=== PATIENT | female | born 1935 | race Caucasian/White ===

== ENCOUNTER 2018-09-16 14:37 | Emergency (ER) | payer OTHER, MEDICARE ==
--- NOTE | 2018-09-16 15:14 | PDOC ---
Rapid Medical Evaluation Time Seen by Provider: 09/16/18 15:09 Medical Evaluation: 09/16/18 15:09 I have performed a brief in-person evaluation of this patient. The patient presents with a chief complaint of: Abd pain x several weeks. Had US today revealing possible mass in pancreatic tail w/ mid to mod L renal hydro (daughter has report on her person). H/o borderline DM, HLD, HTN per daughter Pertinent physical exam findings:in NAD and stable I have ordered the following:labs The patient will proceed to the ED for further evaluation. Discharge Disposition - Diagnosis Abdominal pain Qualifiers: Abdominal location: unspecified location Qualified Code(s): R10.9 - Unspecified abdominal pain - Referrals - Patient Instructions - Post Discharge Activity
[2018-09-16 15:24] VITALS: TEMP 97.9; BMI 24.4
[2018-09-16 15:36] LABS: BASO % 1.3 % (0-2.0); HEMATOCRIT 31.8 % (32.4-45.2); HEMOGLOBIN 11.3 GM/dL (10.7-15.3); LYMPH % 28.9 % (8-40); MCH 30.9 pg (25.7-33.7); MCHC 35.4 g/dl (32.0-36.0); MEAN CELL VOLUME 87.2 fl (80-96); MEAN PLT VOLUME 7.6 fl (7.5-11.1); MONO % 7.8 % (3.8-10.2); PLATELET COUNT 307 K/MM3 (134-434); RBC 3.65 M/mm3 (3.60-5.2); RDW 13.4 % (11.6-15.6); WHITE BLOOD COUNT 6.1 K/mm3 (4.0-10.0)
[2018-09-16 16:02] LABS: ALBUMIN 3.6 g/dl (3.4-5.0); ALK PHOS 60 U/L (45-117); ANION GAP 7 MMOL/L (8-16); BILIRUBIN,TOTAL 0.3 mg/dL (0.2-1); BLOOD UREA NITROGEN 23 mg/dL (7-18); CHLORIDE 99 mmol/L (98-107); CO2 28 mmol/L (21-32); CREATININE 1.1 mg/dL (0.55-1.3); GLUCOSE,RANDOM 125 mg/dL (74-106); LIPASE 124 U/L (73-393); POTASSIUM 4.3 mmol/L (3.5-5.1); SGOT/AST 12 U/L (15-37); SGPT/ALT 16 U/L (13-61); SODIUM 134 mmol/L (136-145); TOT PROT 7.2 g/dl (6.4-8.2)
--- NOTE | 2018-09-16 17:22 | PDOC ---
History of Present Illness - General Chief Complaint: Pain Stated Complaint: ABD PAIN Time Seen by Provider: 09/16/18 15:09 History Source: Patient, Family (daughter) Exam Limitations: Language Barrier - History of Present Illness Initial Comments: 09/16/18 17:18 Pt is an 83yo F with PMH of borderline DM, HLD, HTN (per daughter) presenting to ED for follow up on ultrasound results. Per daughter, pt got a call from step father who was told to send pt to ED for evaluation after results of ultrasound came back. Pt had ultrasound of abdomen done earlier today because pt had been having 3 weeks of abdominal pain which is mainly left sided. She endorses weight loss, around 7-8lbs these past 3 weeks. Denies fevers, chills, nightsweats, nausea, vomiting, diarrhea, blood in stool, tarry stools, chest pain, sob, distension, abdominal surgeries, sick contacts. She thinks the pain started around the time she was placed on medications for "kidney problem". The medication course ended about 6 days ago. Ultrasound report states mild to moderate left renal hyronephrosis with suggestion of perinephric free fluid extending into left flank and heterogeneious ill-defined masslike density that appears hypechoic in pancreatic tail measuring 2.5 cm and appears to be involving pancreatic body. PMD: Rosalie PMH: see hpi PSH: none Meds: ? Social: denies Allergies: ndka Past History - Past Medical History Allergies/Adverse Reactions: Allergies Allergy/AdvReac Type Severity Reaction Status Date / Time No Known Allergies Allergy Verified 09/16/18 15:24 COPD: No HTN: Yes Hypercholesterolemia: Yes - Suicide/Smoking/Psychosocial Hx Smoking History: Never smoked Have you smoked in the past 12 months: No Information on smoking cessation initiated: No Hx Alcohol Use: No Drug/Substance Use Hx: No *Physical Exam - Vital Signs Last Vital Signs Temp Pulse Resp BP Pulse Ox 97.9 F 95 H 17 99/66 99 09/16/18 15:09 09/16/18 15:09 09/16/18 15:09 09/16/18 15:09 09/16/18 15:09 Moderate Sedation - Procedure Monitoring Vital Signs: Procedure Monitoring Vital Signs Temperature 97.9 F 09/16/18 15:09 Pulse Rate 95 H 09/16/18 15:09 Respiratory Rate 17 09/16/18 15:09 Blood Pressure 99/66 09/16/18 15:09 O2 Sat by Pulse Oximetry (%) 99 09/16/18 15:09 ED Treatment Course - LABORATORY CBC & Chemistry Diagram: 09/16/18 15:25 09/16/18 15:25 - ADDITIONAL ORDERS Additional order review: Laboratory Results 09/16/18 15:25 Sodium 134 L Potassium 4.3 Chloride 99 Carbon Dioxide 28 Anion Gap 7 L BUN 23 H Creatinine 1.1 Creat Clearance w eGFR 47.21 Random Glucose 125 H Calcium 10.0 Total Bilirubin 0.3 AST 12 L ALT 16 Alkaline Phosphatase 60 Total Protein 7.2 Albumin 3.6 Lipase 124 09/16/18 15:25 RBC 3.65 MCV 87.2 MCHC 35.4 RDW 13.4 MPV 7.6 Neutrophils % 58.0 Lymphocytes % 28.9 Monocytes % 7.8 Eosinophils % 4.0 Basophils % 1.3 Medical Decision Making - Medical Decision Making 09/16/18 18:50 Pt is an 83yo F with PMH of borderline DM, HLD, HTN (per daughter) presenting to ED for follow up on ultrasound results. Per daughter, pt got a call from step father who was told to send pt to ED for evaluation after results of ultrasound came back. Pt had ultrasound of abdomen done earlier today because pt had been having 3 weeks of abdominal pain which is mainly left sided. She endorses weight loss, around 7-8lbs these past 3 weeks. Denies fevers, chills, nightsweats, nausea, vomiting, diarrhea, blood in stool, tarry stools, chest pain, sob, distension, abdominal surgeries, sick contacts. She thinks the pain started around the time she was placed on medications for "kidney problem". The medication course ended about 6 days ago. Ultrasound report states mild to moderate left renal hyronephrosis with suggestion of perinephric free fluid extending into left flank and heterogeneious ill-defined masslike density that appears hypechoic in pancreatic tail measuring 2.5 cm and appears to be involving pancreatic body. Vitals; wnl PE: benign Pt coming from home for ultrasound findings suggestive of pancreatic mass, L hydronephrosis with Flank free fluid. Per CT scan done in 2012, L hydronephrosis was present. Pancreatic mass and free fluid is new. -CTAP (with and without contrast as suggested by CT scan, pt getting hydration due to borderline Cr and slightly decreased GFR) Lab wnl 09/16/18 18:[address] Pending results Signed out to night team *DC/Admit/Observation/Transfer Diagnosis at time of Disposition: Pancreatic mass Abdominal pain Qualifiers: Abdominal location: unspecified location Qualified Code(s): R10.9 - Unspecified abdominal pain Hydronephrosis Qualifiers: Hydronephrosis type: unspecified Qualified Code(s): N13.30 - Unspecified hydronephrosis - Discharge Dispostion Disposition: HOME Condition at time of disposition: Good Decision to Admit order: No - Referrals Referrals: Va Wiggins MD [Primary Care Provider] - - Patient Instructions Printed Discharge Instructions: DI for Abdominal Pain-Adult - Post Discharge Activity
[2018-09-16] MEDS ORDERED: SODIUM CHLORIDE 500 ML IV STA ×2 (17:43→18:53)
--- NOTE | 2018-09-16 19:30 | PDOC ---
*Physical Exam - Vital Signs Last Vital Signs Temp Pulse Resp BP Pulse Ox 97.9 F 95 H 17 99/66 99 09/16/18 15:09 09/16/18 15:09 09/16/18 15:09 09/16/18 15:09 09/16/18 15:09 ED Treatment Course - LABORATORY CBC & Chemistry Diagram: 09/16/18 15:25 09/16/18 15:25 - ADDITIONAL ORDERS Additional order review: Laboratory Results 09/16/18 15:25 Sodium 134 L Potassium 4.3 Chloride 99 Carbon Dioxide 28 Anion Gap 7 L BUN 23 H Creatinine 1.1 Creat Clearance w eGFR 47.21 Random Glucose 125 H Calcium 10.0 Total Bilirubin 0.3 AST 12 L ALT 16 Alkaline Phosphatase 60 Total Protein 7.2 Albumin 3.6 Lipase 124 09/16/18 15:25 RBC 3.65 MCV 87.2 MCHC 35.4 RDW 13.4 MPV 7.6 Neutrophils % 58.0 Lymphocytes % 28.9 Monocytes % 7.8 Eosinophils % 4.0 Basophils % 1.3 - Medications Given in the ED: ED Medications Discontinued Medications Generic Name Dose Route Start Last Admin Trade Name Freq PRN Reason Stop Dose Admin Sodium Chloride 500 mls @ 1,000 mls/hr 09/16/18 17:43 09/16/18 17:48 Normal Saline - IV 09/16/18 18:12 1,000 mls/hr ASDIR STA Administration Medical Decision Making - Medical Decision Making 09/16/18 19:29 The patient was signed out to me by Dr. Flowers. The patient is an 83F with a PMH of borderline HTN, HLD, who presents to the ER with a note concerning for pancreatic CA on U/S. Pending CTAP. 09/16/18 21:15 Dr. Hendricks, vascular, paged for recs on CT. 09/16/18 21:19 CT Impression: 1. Mass proximal body the pancreas measuring 5.9 x 4.5 x 4.8 cm. Difficult to single she mass in the posterior wall of the distal stomach. Omental caking noted. 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 2. Abdominal and pelvic ascites. 3. Bilateral hydronephrosis and hydroureter. No obvious ureteral obstruction identified. Bladder is small and contracted although bladder wall thickening suggested diffusely. Paging vascular surgery for recommendations. 09/16/18 21:50 Dr. Hendricks paged x 2. 09/16/18 22:15 Rebecca Hendricks paged x 3. 09/16/18 22:30 [facility] vascular surgery paged. 09/16/18 22:40 Vascular surgery recs: Start anticoagulation. Usually get admitted to hospitalist. If pt is not in acute extremis, admitted and anticoagulation. Heparin usually first. Observed. Send to [facility] or [facility] [place] ER. Likely admission. Dr. Lyles accepts the patient and will see the patient in the ER. I have endorsed the patient to Dr. Hdz at [facility] ED. 09/16/18 23:35 Transfer team has taken pt to [facility]. 09/16/18 23:55 Dr. Hendricks has called back. I have informed him that the patient is already transferred. *DC/Admit/Observation/Transfer Diagnosis at time of Disposition: Pancreatic mass Abdominal pain Qualifiers: Abdominal location: unspecified location Qualified Code(s): R10.9 - Unspecified abdominal pain Hydronephrosis Qualifiers: Hydronephrosis type: unspecified Qualified Code(s): N13.30 - Unspecified hydronephrosis - Discharge Dispostion Disposition: TRANSFER ACUTE CARE/OTHER HOSP Condition at time of disposition: Guarded Decision to Admit order: No - Referrals Referrals: Va Wiggins MD [Primary Care Provider] - - Patient Instructions Printed Discharge Instructions: DI for Abdominal Pain-Adult - Post Discharge Activity - Transfer to Acute Care Facility Receiving Facility: [facility] Accepting Physician:: Dr. Hdz
--- NOTE | 2018-09-16 23:12 | PDOC ---
Attending Attestation - Resident Resident Name: KristieSaTania - ED Attending Attestation I have performed the following: I have examined & evaluated the patient, The case was reviewed & discussed with the resident, I agree w/resident's findings & plan, Exceptions are as noted - HPI HPI: 09/17/18 18:10 The patient is an 83-year-old female, with a past medical history of HTN, HLD, DM, who presents to the ED for follow up on US results. The patient has been experiencing left-sided abdominal pain for the past 3 weeks and had an abdomen US done earlier today. Pt reports she received a call from her PMD to come to the ED for further evaluation due to the US results. She reports 7-8 lbs weight loss in the past 3 weeks. She denies any fevers, chills, nausea, vomiting, diarrhea, or hematochezia. Denies any chest pain or shortness of breath. Denies any urinary symptoms. Per US study report: Mild to moderate left renal hydronephrosis with suggestion of perinephric free fluid that appears to be extending to the to the left flank and a heterogeneous ill-defined masslike density that appears hypoechoic in the pancreatic tail measuring 2.5 cm and appears to be involving the pancreatic body. - Physicial Exam PE: 09/17/18 18:13 agree with resident exam - Medical Decision Making 09/17/18 18:13 83yo F presents to the ED with 3 weeks of L sided abd pain, weight loss, and abnormal US c/f perinephric free fluids and possible pancreatic mass. Labs wnl thus far. In light of possible free fluid, L side abd pain (although non tender on exam), and possible mass, will further investigate with CTAP. Pt and daughter aware of possible mass, agree to CTAP for further evaluation. 09/17/18 19:16 Pt currently at CTAP. UA pending. Case signed out to overnight attending for f/u on pending diagnostics, dispo.
[2018-09-16] MEDS ORDERED: HEPARIN NA (PORCINE) 5,000 UNITS/ML 1ML VIAL IVPUSH PRN ×2 (23:29)
[2018-09-16] MEDS ORDERED: HEPARIN - 25,000 UNIT in SODIUM CHLORIDE 495 ML IV SCH (23:30)
[2018-09-16 23:35] VITALS: BP 110/65; PULSE 83
--- NOTE | 2018-09-17 16:46 | EKG ---
Test Reason : Blood Pressure : / mmHG Vent. Rate : 099 BPM Atrial Rate : 099 BPM P-R Int : 178 ms QRS Dur : 088 ms QT Int : 360 ms P-R-T Axes : 038 -12 008 degrees QTc Int : 462 ms NORMAL SINUS RHYTHM NORMAL ECG NO PREVIOUS ECGS AVAILABLE Confirmed by RUPESH WU MD ([id number]) on 09/17/2018 4:45:45 PM Referred By: Confirmed By:RUPESH WU MD
== END 2018-09-17 00:04 | disposition short-term general hospital (02) ==
LOC: JER 14:37
PROC: 3E0337Z Introduction of Electrolytic and Water Balance Substance into Peripheral Vein, Percutaneous Approach (ICD-10-PCS; principal; 2018-09-16)
DX: K86.89 Other specified diseases of pancreas (principal); N13.30 Unspecified hydronephrosis; I10 Essential (primary) hypertension; E78.5 Hyperlipidemia, unspecified; E78.00 Pure hypercholesterolemia, unspecified; E11.9 Type 2 diabetes mellitus without complications
CPT/HCPCS: 36415; 74178-TC; 80053; 83690; 85025; 93005; 93010; 99284-25; J7030

== ENCOUNTER 2018-11-06 21:06 | Emergency (ER) | payer OTHER, MEDICARE ==
[2018-11-06 21:15] VITALS: BP 124/59; PULSE 109; TEMP 98.5
--- NOTE | 2018-11-06 21:15 | PDOC ---
Rapid Medical Evaluation Chief Complaint: Nasal Bleeding Medical Evaluation: Allergies Allergy/AdvReac Type Severity Reaction Status Date / Time No Known Allergies Allergy Verified 09/16/18 15:24 11/06/18 21:14 I have performed a brief in-person evaluation of this patient. The patient presents with a chief complaint of: Epistaxis. H/o stage 3 pancreatitic cancer Pertinent physical exam findings:stable I have ordered the following:labs The patient will proceed to the ED for further evaluation. Discharge Disposition - Diagnosis Epistaxis - Referrals - Patient Instructions - Post Discharge Activity
--- NOTE | 2018-11-06 21:38 | PDOC ---
History of Present Illness <RaquelAusten - Last Filed: 11/07/18 00:43> - General History Source: Patient, Family ( and Daughter at bedside.), Old Records Exam Limitations: No Limitations - History of Present Illness Initial Comments: HPI: 83 y/o female presenting to [facility] ER complaining of 2x nose bleeds and diffuse abdominal pain. Pts daughter reports observing two brief periods of epistaxis over the course of the day. Last episode was at approx. 5pm. Small amount of bleeding and some clotted material was passed into the tissue. Bleeding stopped prior to arrival. Abdominal pain is a chronic complaint secondary to stage 3 pancreatic cancer. On palliative care only. Pt is prescribed a 72hr Fentanyl patch and Oxycodone BID. Was not able to tolerate evening Oxycodone dose secondary to nausea. Pt endorses decreased PO intake for past several days with feelings of weakness. Is not prescribed any antiemetic. 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 Is scheduled to be evaluated by marijuana pain specialist on Friday. Oncologist: Dr. Hagan Medical Hx: - Stage 3 Pancreatic Cancer - Borderline DM - HLD - HTN <William Valenzuela - Last Filed: 11/07/18 00:51> - General Chief Complaint: Nasal Bleeding Stated Complaint: NOSE BLEEDS/ ABD PAIN Time Seen by Provider: 11/06/18 21:25 Past History <RaquelAusten - Last Filed: 11/07/18 00:43> - Past Medical History Cancer: Yes (Stage 3 PancreaticCA) COPD: No HTN: Yes Hypercholesterolemia: Yes - Suicide/Smoking/Psychosocial Hx Smoking History: Never smoked Have you smoked in the past 12 months: No Information on smoking cessation initiated: No Hx Alcohol Use: No Drug/Substance Use Hx: No <William Valenzuela - Last Filed: 11/07/18 00:51> - Past Medical History Allergies/Adverse Reactions: Allergies Allergy/AdvReac Type Severity Reaction Status Date / Time No Known Allergies Allergy Verified 09/16/18 15:24 Home Medications: Ambulatory Orders Ondansetron [Zofran Odt -] 4 mg SL TID #21 od.tablet 11/07/18 Review of Systems - Review of Systems Able to Perform ROS?: Yes Comments:: In addition to that documented in the HPI above, the additional ROS was obtained : Constitutional: Denies fevers or chills Head: Denies vision changes ENMT: Denies sore throat CV: Denies chest pain Resp: Denies SOB GI: Endorses nausea and small amount of emesis. Denies diarrhea : Denies painful urination, increased urinary frequency, or hematuria MSK: Denies recent trauma Skin: Denies new rashes Neuro: Denies new numbness or tingling or weakness Endocrine: Denies polyuria Heme: Denies bleeding or bruising <William Valenzuela - Last Filed: 11/07/18 00:51> *Physical Exam - Vital Signs Last Vital Signs Temp Pulse Resp BP Pulse Ox 98.5 F 109 H 20 124/59 L 98 11/06/18 21:11 11/06/18 21:11 11/06/18 21:11 11/06/18 21:11 11/06/18 21:11 <Austen García - Last Filed: 11/07/18 00:43> - Vital Signs Last Vital Signs Temp Pulse Resp BP Pulse Ox 98.5 F 109 H 20 124/59 L 98 11/06/18 21:11 11/06/18 21:11 11/06/18 21:11 11/06/18 21:11 11/06/18 21:11 - Physical Exam Comments: Constitutional: Non-toxic elderly adult female in no acute distress but obvious discomfort. Found in left lateral recumbent position on hospital bed. Alert and oriented x4. Speech was non-labored, non-pressured. Head: Normocephalic. No obvious external signs of trauma. Eyes: Sclerae white. Conjunctiva moist and not injected. Ears: Hearing grossly intact. Nose: Small amount of blood to anterolateral aspect of left nare and small amount of blood to anteromedial aspect of right nare. No active bleeding. Throat: Trace amount of dry appearing blood in posterior oropharynx but otherwise normal appearing. No inflammation, swelling, exudate, or lesions. Neck: Supple, trachea is midline. Cardiovascular / Chest: Regular rate and regular rhythm. No murmur, rubs, clicks, or gallops. Peripheral pulses: radial pulses full. Respiratory: Breathing unlabored. Equal chest rise and fall. Clear to auscultation bilaterally. No stridor, no wheezing, no rhonchi. Gastrointestinal: abdomen is diffusely tender with obvious mass in RUQ. Neuro: Alert and oriented. Moving all four extremities spontaneously. Skin: Warm, dry, and intact. Psych: Affect: appropriate. Mood: normal. <William Valenzuela - Last Filed: 11/07/18 00:51> ED Treatment Course - LABORATORY CBC & Chemistry Diagram: 11/06/18 22:50 11/06/18 22:50 - ADDITIONAL ORDERS Additional order review: Laboratory Results 11/06/18 11/06/18 11/06/18 22:50 22:50 22:50 PT with INR INR PTT (Actin FS) Cancelled Sodium Cancelled Potassium Cancelled Chloride Cancelled Carbon Dioxide Cancelled Anion Gap Cancelled BUN Cancelled Creatinine Cancelled Creat Clearance w eGFR Cancelled Random Glucose Cancelled Calcium Cancelled Total Bilirubin Cancelled AST Cancelled ALT Cancelled Alkaline Phosphatase Cancelled Total Protein Cancelled Albumin Cancelled Blood Type Cancelled Antibody Screen Cancelled 11/06/18 22:50 PT with INR 17.90 H INR 1.51 H PTT (Actin FS) 30.1 Sodium Potassium Chloride Carbon Dioxide Anion Gap BUN Creatinine Creat Clearance w eGFR Random Glucose Calcium Total Bilirubin AST ALT Alkaline Phosphatase Total Protein Albumin Blood Type Antibody Screen 11/06/18 22:50 RBC 3.47 L MCV 86.7 MCHC 33.6 RDW 14.2 MPV 7.2 L Neutrophils % 74.8 Lymphocytes % 13.5 D Monocytes % 10.4 H Eosinophils % 0.5 D Basophils % 0.8 - Medications Given in the ED: ED Medications Discontinued Medications Generic Name Dose Route Start Last Admin Trade Name Faith PRN Reason Stop Dose Admin Acetaminophen 1,000 mg 11/06/18 22:21 11/06/18 23:19 Ofirmev Injection - IVPB 11/06/18 22:22 1,000 mg ONCE ONE Administration Lactated Ringer's 1,000 ml 11/06/18 22:07 11/06/18 23:18 Lactated Ringers Solution IV 11/06/18 22:08 1,000 ml ONCE ONE Administration Morphine Sulfate 4 mg 11/06/18 22:18 11/06/18 23:18 Morphine Injection - IVPUSH 11/06/18 22:19 4 mg ONCE ONE Administration Ondansetron HCl 4 mg 11/06/18 22:06 11/06/18 23:18 Zofran Odt - SL 11/06/18 22:07 4 mg ONCE ONE Administration Ondansetron HCl 4 mg 11/06/18 22:12 11/06/18 23:18 Zofran Injection IVPUSH 11/06/18 22:13 4 mg ONCE ONE Administration <Austen García - Last Filed: 11/07/18 00:43> - LABORATORY CBC & Chemistry Diagram: 11/06/18 22:50 11/06/18 22:50 <BishopWilliam - Last Filed: 11/07/18 00:51> Medical Decision Making - Medical Decision Making *Reviewed vital signs, nursing notes, and prior visit documentation (if available). 83 y/o female presenting with resolved epistaxis x2 on Eliquis and abdominal pain in setting of pancreatic cancer. Has not been tolerating normally scheduled pain regimen secondary to nausea. Suspect pain is secondary to CA given lack of persistent vomiting or diarrhea. Afebrile. Vitals remarkable for borderline tachycardia without hypotension. Will trend vitals. EKG ordered by RME. Will obtain CBC, CMP, Coags, and T/S. Ordered LR IVFB, Zofran IV and OTD ( for pt education), Acetaminophen, and Morphine for symptom management. 23:38 Lab called to report T/S and chemistry hemolyzed. Will not reorder s pt is not anemic and low suspicion for acute electrolyte derangement. Pt assessed and discharged by ED attending. <William Valenzuela - Last Filed: 11/07/18 00:51> *DC/Admit/Observation/Transfer - Discharge Dispostion Decision to Admit order: No <Austen García - Last Filed: 11/07/18 00:43> <BishopWilliam - Last Filed: 11/07/18 00:51> Diagnosis at time of Disposition: Epistaxis - Prescriptions Prescriptions: Ondansetron [Zofran Odt -] 4 mg SL TID #21 od.tablet - Referrals Referrals: Va Wiggins MD [Primary Care Provider] - Romario Tejeda MD [Staff Physician] - - Patient Instructions Printed Discharge Instructions: Nosebleed Additional Instructions: Take [id number] Colace as directed on package. Take Zofran as prescribed. Okay to take pain medication as prescribed. Follow-up with a pain management doctor next week. If nose bleeding recurs apply pressure for 30 minutes as instructed in the ED return to ED for any severe worsening symptoms uncontrollable bleeding or for any concerns. Try not to blow nose or cough forcefully. If re-bleeding occurs more frequently please follow up with Dr. Tejeda next week
[2018-11-06] MEDS ORDERED: ONDANSETRON *ODT* 4 MG TABLET SL ONE (22:06)
[2018-11-06] MEDS ORDERED: LACTATED RINGERS SOLUTION 1000 ML INFUS.BAG IV ONE (22:07)
[2018-11-06] MEDS ORDERED: ONDANSETRON 4 MG/2 ML VIAL IVPUSH ONE (22:12)
[2018-11-06] MEDS ORDERED: morphine CARPU-JECT 4 MG/1 ML DISP.SYRIN IVPUSH ONE (22:18)
[2018-11-06] MEDS ORDERED: ACETAMINOPHEN 1000 MG/100 ML VIAL (NON FORMULARY) IVPB ONE (22:21)
[2018-11-06] MEDS ORDERED: morphine SULFATE 4 MG/ML VIAL ONE (22:27)
[2018-11-06] MEDS ORDERED: ACETAMINOPHEN INJECTION 100 ML IVPB ONE (22:27)
[2018-11-06] MEDS ORDERED: ONDANSETRON *ODT* 4 MG TABLET ONE (22:27)
[2018-11-06] MEDS ORDERED: ONDANSETRON 4 MG/2 ML VIAL ONE (22:28)
[2018-11-06 23:00] LABS: BASO % 0.8 % (0-2.0); EOS % 0.5 % (0-4.5); HEMATOCRIT 30.1 % (32.4-45.2); HEMOGLOBIN 10.1 GM/dL (10.7-15.3); LYMPH % 13.5 % (8-40); MCH 29.1 pg (25.7-33.7); MCHC 33.6 g/dl (32.0-36.0); MEAN CELL VOLUME 86.7 fl (80-96); MEAN PLT VOLUME 7.2 fl (7.5-11.1); MONO % 10.4 % (3.8-10.2); NEUT % 74.8 % (42.8-82.8); PLATELET COUNT 455 K/MM3 (134-434); RBC 3.47 M/mm3 (3.60-5.2); RDW 14.2 % (11.6-15.6); WHITE BLOOD COUNT 5.2 K/mm3 (4.0-10.0)
[2018-11-06 23:23] LABS: INR 1.51 (0.83-1.09); PROTHROMBIN TIME (PATIENT) 17.9 SEC (9.7-13.0)
[2018-11-06 23:26] LABS: ACTIVATED PTT 30.1 SECONDS (25.2-36.5)
--- NOTE | 2018-11-07 00:09 | PDOC ---
Attending Attestation - HPI HPI: 11/07/18 00:13 The patient is a 83 year old female, with a significant past medical history of taking Eliquis for venous thrombus around pancreas (as per daughter), DM, HLD , HTN, who is presenting to the ED with complaint of nosebleed x2 and chronic diffuse abdominal pain today. The patient reports some clotted material was passed into the tissue from her nose and stopped just prior to ED arrival. Bleeding stopped prior to arrival. The patient also reports associated nausea and decreased PO intake. The patient denies chest pain, shortness of breath, headache and dizziness. The patient denies fever, chills, vomit, diarrhea and constipation. The patient denies dysuria, frequency, urgency and hematuria. Oncologist: Dr. Hagan PMD: Rosalie - Physicial Exam PE: 11/07/18 00:13 ROS: A complete review of 10 out of 10 review of systems is taken and is negative apart from what is previously mentioned below and in the HPI. Physical Exam Vitals: Triage vital signs reviewed General Appearance: No acute distress, well nourished, well developed Head: Atraumatic Eyes: Pupils equal reactive round, extraocular movement intact Neck: Supple; No nuchal rigidity Chest Wall: Nontender Cardiac: Regular rate and rhythm, no murmurs, no rubs, no gallops Lungs: Clear to auscultation bilateral, good air movement bilaterally Abdomen: (+) diffuse mild tenderness. Soft, nondistended, normal bowel sounds, Extremities: Full range of motion to all extremities, no cyanosis, clubbing, or edema Skin: Warm and dry, no rashes or lesions, no rash, no petechiae Neuro: AOX3; Cranial Nerves 2-12 grossly intact, Strength intact to all extremities, Sensation intact to all extremities, Psych: Normal mood, normal affect <Hollie Mansfield - Last Filed: 11/07/18 00:13> - Resident Resident Name: William Valenzuela - ED Attending Attestation I have performed the following: I have examined & evaluated the patient, The case was reviewed & discussed with the resident, I agree w/resident's findings & plan, Exceptions are as noted - Medical Decision Making 11/07/18 01:37 83 years old with advanced pancreatic cancer in home hospice presents with epistaxis which has since resolved Patient also with chronic abdominal discomfort being treated with fentanyl and oxycodone at home Family states decreased by mouth intake at home requesting IV fluids Status post IV fluids and Zofran patient feels much better now tolerating fluids by mouth discussed with family admission for additional fluids the patient would like to return home we'll discharge home with prescription for Zofran, Colace. Family where they can return to the ED at any time Otherwise they will follow-up this week with her primary care doctor and pain management doctor Findings, need for follow-up and strict return instructions discussed with family patient. <Austen García - Last Filed: 11/07/18 01:37> Attestations - Attestations 11/07/18 00:14 Documentation prepared by Hollie Mansfield, acting as medical technologist prn for Austen García MD <Hollie Mansfield - Last Filed: 11/07/18 00:13>
--- NOTE | 2018-11-09 10:27 | EKG ---
Test Reason : Blood Pressure : / mmHG Vent. Rate : 102 BPM Atrial Rate : 102 BPM P-R Int : 142 ms QRS Dur : 082 ms QT Int : 348 ms P-R-T Axes : 016 003 013 degrees QTc Int : 453 ms SINUS TACHYCARDIA INCOMPLETE RIGHT BUNDLE BRANCH BLOCK ABNORMAL ECG WHEN COMPARED WITH ECG OF 16-SEP-2018 23:36, NO SIGNIFICANT CHANGE WAS FOUND Confirmed by VENUS PACHECO MD ([id number]) on 11/09/2018 10:27:00 AM Referred By: Confirmed By:VENUS PACHECO MD
== END 2018-11-07 01:10 | disposition home or self-care (01) ==
LOC: JER 21:06
PROC: 3E033NZ Introduction of Analgesics, Hypnotics, Sedatives into Peripheral Vein, Percutaneous Approach (ICD-10-PCS; principal; 2018-11-06)
PROC: 3E033NZ Introduction of Analgesics, Hypnotics, Sedatives into Peripheral Vein, Percutaneous Approach (ICD-10-PCS; 2018-11-06)
PROC: 3E033GC Introduction of Other Therapeutic Substance into Peripheral Vein, Percutaneous Approach (ICD-10-PCS; 2018-11-06)
DX: R10.84 Generalized abdominal pain (principal); R04.0 Epistaxis; C25.7 Malignant neoplasm of other parts of pancreas; I10 Essential (primary) hypertension; E11.9 Type 2 diabetes mellitus without complications; E78.00 Pure hypercholesterolemia, unspecified; Z86.718 Personal history of other venous thrombosis and embolism; Z79.01 Long term (current) use of anticoagulants; R00.0 Tachycardia, unspecified
CPT/HCPCS: 36415; 85025; 85610; 85730; 93005; 93010; 96374; 96375; 99282-25; J0131; Q0162

== ENCOUNTER 2018-11-14 17:17 | Inpatient (IN) | payer OTHER, MEDICARE ==
--- NOTE | 2018-11-14 18:36 | PDOC ---
History of Present Illness - General Chief Complaint: Pain Stated Complaint: WEAKNESS, ABDOMINAL PAIN Time Seen by Provider: 11/14/18 17:43 History Source: Patient, Family (Adult Daughter at bedside.), Spouse ( at bedside.), Old Records Exam Limitations: No Limitations - History of Present Illness Initial Comments: HPI: 83 y/o female BIBEMS to [facility] ER complaining of diffuse abdominal pain, persistent nausea/vomiting, and general malaise. The abdominal pain is chronic secondary to stage 3 pancreatic cancer. On palliative care only. Pt is prescribed a 72hr Fentanyl patch and Oxycodone BID. Current Fentanyl patch is scheduled to be changed tomorrow. Was not able to tolerate evening Oxycodone dose secondary to nausea. Pt endorses decreased PO intake for past several days with feelings of weakness. Pt further endorses decreased bowel movements with poor PO intake for the past several days. Pt was scheduled to establish care with a [facility] doctor last week but cancelled the appointment because of weakness. Pt was evaluated in this department on 07 November 2018 for similar complaints. Oncologist: Dr. Hagan Medical Hx: - Stage 3 Pancreatic Cancer - Borderline DM - HLD - HTN Past History - Past Medical History Allergies/Adverse Reactions: Allergies Allergy/AdvReac Type Severity Reaction Status Date / Time No Known Allergies Allergy Verified 11/14/18 17:27 Home Medications: Ambulatory Orders FENTANYL 12mcg PATCH [DURAGESIC 12mcg PATCH -] 1 each TD Q72H 11/14/18 Ondansetron HCl [Zofran] 4 mg PO Q6H PRN 11/14/18 Oxycodone HCl [Oxaydo] 7.5 mg PO Q6H PRN 11/14/18 Rivaroxaban [Xarelto -] 10 mg PO DAILY 11/14/18 Sennosides/Docusate Sodium [Stool Softener-Laxative Tablet] 1 each PO DAILY PRN 11/14/18 Cancer: Yes (Stage 3 PancreaticCA) COPD: No HTN: Yes Hypercholesterolemia: Yes - Immunization History Immunization Up to Date: (Unknown) - Suicide/Smoking/Psychosocial Hx Smoking History: Never smoked Have you smoked in the past 12 months: No Information on smoking cessation initiated: No Hx Alcohol Use: No Drug/Substance Use Hx: No Review of Systems - Review of Systems Able to Perform ROS?: Yes Comments:: In addition to that documented in the HPI above, the additional ROS was obtained : Constitutional: Denies fevers or chills Head: Denies vision changes ENMT: Denies sore throat CV: Denies chest pain Resp: Denies SOB GI: Per HPI : Denies painful urination MSK: Denies recent trauma Skin: Denies new rashes Neuro: Denies new numbness or tingling or weakness Endocrine: Denies polyuria Heme: Denies bleeding or bruising *Physical Exam - Vital Signs Last Vital Signs Temp Pulse Resp BP Pulse Ox 98.2 F 103 H 20 123/61 97 11/14/18 17:27 11/14/18 17:27 11/14/18 17:27 11/14/18 17:27 11/14/18 17:27 - Physical Exam Comments: Constitutional: Nontoxic elderly female in no acute distress but obvious discomfort. Found semi-fowlers on hospital bed. Alert and oriented x4. Answered all questions appropriately and completely. Speech was non-labored, non- pressured. Head: Normocephalic. No obvious external signs of trauma. Eyes: Sclerae white. Cardiovascular / Chest: Regular rate and regular rhythm. No murmur, rubs, clicks, or gallops. Peripheral pulses: radial pulses full. Respiratory: Breathing unlabored. Equal chest rise and fall. Clear to auscultation bilaterally. No stridor, no wheezing, no rhonchi. Gastrointestinal: abdomen is diffusely tender and distended but not taught. Palpable mass in RUQ. Neuro: Alert and oriented. Moving all four extremities spontaneously. Skin: Warm, dry, and intact. Psych: Affect: appropriate. Mood: normal. ED Treatment Course - LABORATORY CBC & Chemistry Diagram: 11/14/18 19:42 11/14/18 19:42 - RADIOLOGY Radiograph Interpretation: Abdominal Flat and Upright Plain Film: Melinda Savage MD wrote on Nov 14, 2018 at 07:47 PM: Referring Physician: BISHOP FELIX Patient Name: ALIDA CEE THIS IS A PRELIMINARY REPORT FROM [facility] DATE OF SERVICE: 2018-11-14 19:11:55 IMAGES: 4 EXAM: ABDOMEN FLAT \T\ UPRIGHT HISTORY: Abdominal distention pancreatic cancer COMPARISON: None. FINDINGS: Increased soft tissue density overlying the abdomen likely imply the presence of abdominal ascites. There is minimal bowel gas and moderate stool present. There are no dilated loops of bowel or air-fluid levels. There is no apparent pneumoperitoneum. Degenerative lumbar spine changes are seen. The visualized lower lung diane are clear. IMPRESSION: Minimal bowel gas present. No dilated loops of bowel or evidence of obstruction. No apparent pneumoperitoneum. Suspect ascites THIS DOCUMENT HAS BEEN ELECTRONICALLY SIGNED Melinda Savage D.O. 11/14/2018 19:47 EST Medical Decision Making - Medical Decision Making *Reviewed vital signs, nursing notes, and prior visit documentation (if available). 83 y/o female with pancreatic cancer on comfort care presenting with chronic abdominal pain and chronic nausea/vomiting. Has not adhered to pain regimen. Afebrile. Vitals unremarkable for hypotension or tachycardia. Physical exam as described above. Suspect pain secondary to CA. Suspect abdominal distention secondary to nonadherence to bowel regimen. Ordered IVFB, pain medication, and abdominal plain film to evaluate for obstruction. Labs revealed mild hyperkalemia and hyponatremia with elevated BUN. Suspect dehydration. Already receiving IVFB. No obstructive pattern on plain film. Discussed goals of care with pt and family. All parties requested admission to hospital for further pain management and likely palliative placement. Further discussed desire for resuscitative efforts and pt requested to be made a full DNR. DNR paperwork was subsequently signed and witnessed by the pts daughter. was also present for the discussion. Telephone consultation with resident Dr. Fu. Verbally appraised of the pts HPI, ED course, and current plan of management. Will admit the pt to med/surg on observational status for Dr. Wilcox. *DC/Admit/Observation/Transfer Diagnosis at time of Disposition: Weakness Abdominal pain Qualifiers: Abdominal location: generalized Qualified Code(s): R10.84 - Generalized abdominal pain Constipation Qualifiers: Constipation type: unspecified constipation type Qualified Code(s): K59.00 - Constipation, unspecified Pancreatic cancer Qualifiers: Pancreatic malignancy location: unspecified Qualified Code(s): C25.9 - Malignant neoplasm of pancreas, unspecified Nausea & vomiting Qualifiers: Vomiting type: unspecified Vomiting Intractability: non-intractable Qualified Code(s): R11.2 - Nausea with vomiting, unspecified - Discharge Dispostion Decision to Admit order: Yes - Referrals Referrals: Va Wiggins MD [Primary Care Provider] - - Patient Instructions - Post Discharge Activity
[2018-11-14] MEDS ORDERED: morphine CARPU-JECT 4 MG/1 ML DISP.SYRIN IVPUSH ONE (18:37)
[2018-11-14] MEDS ORDERED: ONDANSETRON *ODT* 4 MG TABLET SL ONE (18:38)
[2018-11-14] MEDS ORDERED: ACETAMINOPHEN 1000 MG/100 ML VIAL (NON FORMULARY) IVPB ONE (18:38)
[2018-11-14] MEDS ORDERED: ONDANSETRON 4 MG/2 ML VIAL IVPUSH ONE (18:38)
[2018-11-14] MEDS ORDERED: LACTATED RINGERS SOLUTION 1000 ML INFUS.BAG IV ONE (18:38)
--- NOTE | 2018-11-14 18:43 | PDOC ---
Attending Attestation - HPI HPI: The patient is an 83 year old female, with a significant PMH of stage 3 pancreatic cancer, borderline DM, HLD, and HTN, who presents to the emergency department today complaining of abdominal pain, nausea, and vomit. As per patients daughter, she is noncompliant with the pain medications administered for her pancreatic cancer. Patient complains of severe abdominal pain secondary to stage 3 pancreatic CA (on palliative care only), and is currently wearing her Fentanyl patch but is non-compliant with oxycodone (secondary to nausea). Patients daughter also notes her abdomen is significantly more bloated than normal. She endorses associated diffuse weakness, decreased PO intake, and decreased bowel movements. The patient denies chest pain, shortness of breath, headache and dizziness. Denies fever, chills, and diarrhea. Denies dysuria, frequency, urgency and hematuria. Allergies: NKA Past surgical history: None reported Social history: None reported PCP: Dr. Va Wiggins Oncologist: Dr. Lyn Hagan 11/14/18 20:48 - Physicial Exam PE: GENERAL: +Chichetic. The patient is in no acute distress. HEAD: Normal with no signs of trauma. EYES: PERRLA, EOMI, sclera anicteric, conjunctiva clear. ENT: Ears normal, nares patent, oropharynx clear without exudates. Moist mucous membranes. NECK: Normal range of motion, supple without lymphadenopathy, JVD, or masses. LUNGS: Breath sounds equal, clear to auscultation bilaterally. No wheezes, and no crackles. HEART:Regular rate and rhythm, normal S1 and S2 without murmur, rub or gallop. ABDOMEN: +Severe abdominal tenderness to palpation. +Significant abdominal distention. +Guarding. Soft, normoactive bowel sounds. No rebound. No masses palpable. EXTREMITIES: Normal range of motion, no edema. No clubbing or cyanosis. No erythema, or tenderness. NEUROLOGICAL: Cranial nerves II through XII grossly intact. Normal speech. No focal neurological deficits. MUSCULOSKELETAL: Back non-tender to palpation, no CVA tenderness SKIN: Warm, Dry, normal turgor, no rashes or lesions noted. 11/14/18 19:48 - Medical Decision Making EXAM: ABdomen Flat/T/Upright X-Ray Impression: Minimal bowel gas present. No dilated loops of bowel or evidence of obstruction. No apparent pneumoperitoneum. Suspect ascites. Reported by: Melinda Cobian MD. 11/14/2018 19:47 Documentation prepared by KARMEN Strauss, acting as medical/surgery registered nurse for Tania Herrera MD. 11/14/18 20:24 <Liss Ross - Last Filed: 11/14/18 20:48> - Resident Resident Name: William Valenzuela - ED Attending Attestation I have performed the following: I have examined & evaluated the patient, The case was reviewed & discussed with the resident, I agree w/resident's findings & plan, Exceptions are as noted - Medical Decision Making 11/18/18 17:55 83 yo F recent diagnosis of pancreatic cancer presenting with abdominal pain No fevers or chills Pending labs Pending CT Will admit Will IV hydrate Signed out to Dr Herrera <Lashon Carver - Last Filed: 11/18/18 18:01>
[2018-11-14] MEDS ORDERED: morphine SULFATE 4 MG/ML VIAL ONE (18:55)
[2018-11-14] MEDS ORDERED: ONDANSETRON *ODT* 4 MG TABLET ONE (18:56)
[2018-11-14] MEDS ORDERED: ACETAMINOPHEN INJECTION 100 ML IVPB ONE (18:56)
[2018-11-14] MEDS ORDERED: ONDANSETRON 4 MG/2 ML VIAL ONE (18:56)
[2018-11-14] MEDS ORDERED: SODIUM CHLORIDE 1,000 ML IV STA (19:16)
--- NOTE | 2018-11-14 19:36 | PDOC ---
*Physical Exam - Vital Signs Last Vital Signs Temp Pulse Resp BP Pulse Ox 98.2 F 103 H 20 123/61 97 11/14/18 17:27 11/14/18 17:27 11/14/18 17:27 11/14/18 17:27 11/14/18 17:27 Heart Score/ECG Review - ECG Intrepretation Rhythm: Regular Rhythm - Elbing Elbing: Normal - P and RI Prominent R with upright T in V1 (true posterior LA): No Delta Wave(s) Present: No WPW: No - ST and T Non Specific ST-T Wave changes: No - ECG Impressions Normal ECG: No Non-specific ST Elevation: No Ischemic Changes: No Tachycardia: Sinus ED Treatment Course - LABORATORY CBC & Chemistry Diagram: 11/14/18 19:42 11/14/18 19:42 - Medications Given in the ED: ED Medications Discontinued Medications Generic Name Dose Route Start Last Admin Trade Name Freq PRN Reason Stop Dose Admin Acetaminophen 1,000 mg 11/14/18 18:38 11/14/18 19:10 Ofirmev Injection - IVPB 11/14/18 18:39 1,000 mg ONCE ONE Administration Lactated Ringer's 1,000 ml 11/14/18 18:38 11/14/18 19:09 Lactated Ringers Solution IV 11/14/18 18:39 1,000 ml ONCE ONE Administration Morphine Sulfate 4 mg 11/14/18 18:37 11/14/18 19:09 Morphine Injection - IVPUSH 11/14/18 18:38 4 mg ONCE ONE Administration Ondansetron HCl 4 mg 11/14/18 18:38 11/14/18 19:10 Zofran Odt - SL 11/14/18 18:39 4 mg ONCE ONE Administration Ondansetron HCl 4 mg 11/14/18 18:38 11/14/18 19:10 Zofran Injection IVPUSH 11/14/18 18:39 4 mg ONCE ONE Administration Medical Decision Making - Medical Decision Making 11/14/18 19:34 Pt was on home hospice and she was brought by family for worsening abdominal pain. Labs will be obtained. CBC returned. She will be admitted to the hospitalists. 11/14/18 19:56 Patient Name: ALIDA CEE THIS IS A PRELIMINARY REPORT FROM [facility] DATE OF SERVICE: 2018-11-14 19:11:55 IMAGES: 4 EXAM: ABDOMEN FLAT \T\ UPRIGHT HISTORY: Abdominal distention pancreatic cancer COMPARISON: None. FINDINGS: Increased soft tissue density overlying the abdomen likely imply the presence of abdominal ascites. There is minimal bowel gas and moderate stool present. There are no dilated loops of bowel or air-fluid levels. There is no apparent pneumoperitoneum. Degenerative lumbar spine changes are seen. The visualized lower lung diane are clear. IMPRESSION: Minimal bowel gas present. No dilated loops of bowel or evidence of obstruction. No apparent pneumoperitoneum. Suspect ascites 11/14/18 20:18 Pt has ascites and constipation and will require laxatives, hydration. 11/14/18 21:29 Pt signed a DNR with the resident and I. Family was present for the discussion and signature. *DC/Admit/Observation/Transfer Diagnosis at time of Disposition: Abdominal pain, Constipation, Pancreatic cancer, Weakness, Nausea & vomiting - Referrals - Patient Instructions - Post Discharge Activity
[2018-11-14 19:50] LABS: BASO % 0.5 % (0-2.0); EOS % 0.6 % (0-4.5); HEMATOCRIT 27.9 % (32.4-45.2); HEMOGLOBIN 9.2 GM/dL (10.7-15.3); LYMPH % 13.4 % (8-40); MCH 28.5 pg (25.7-33.7); MCHC 32.9 g/dl (32.0-36.0); MEAN CELL VOLUME 86.7 fl (80-96); MEAN PLT VOLUME 7.2 fl (7.5-11.1); MONO % 9.2 % (3.8-10.2); NEUT % 76.3 % (42.8-82.8); PLATELET COUNT 373 K/MM3 (134-434); RBC 3.21 M/mm3 (3.60-5.2); RDW 14.6 % (11.6-15.6); WHITE BLOOD COUNT 6.2 K/mm3 (4.0-10.0)
[2018-11-14] MEDS ORDERED: LACTULOSE 20 GM/30 ML UDC (FOR ORAL USE ONLY) PO ONE (19:55)
[2018-11-14] MEDS ORDERED: POLYETHYLENE GLYCOL 3350 119 GM BTL PO ONE (20:06)
[2018-11-14 20:18] LABS: ALBUMIN 2.5 g/dl (3.4-5.0); ALK PHOS 76 U/L (45-117); AMYLASE 32 U/L (25-115); ANION GAP 10 MMOL/L (8-16); BILIRUBIN,TOTAL 0.3 mg/dL (0.2-1); BLOOD UREA NITROGEN 42 mg/dL (7-18); CALCIUM 8.8 mg/dL (8.5-10.1); CHLORIDE 97 mmol/L (98-107); CO2 22 mmol/L (21-32); CREATININE 1.3 mg/dL (0.55-1.3); GLUCOSE,RANDOM 116 mg/dL (74-106); LIPASE 48 U/L (73-393); POTASSIUM 5.2 mmol/L (3.5-5.1); SGOT/AST 22 U/L (15-37); SGPT/ALT 14 U/L (13-61); SODIUM 130 mmol/L (136-145); TOT PROT 5.6 g/dl (6.4-8.2)
[2018-11-14] MEDS ORDERED: FAMOTIDINE 20 MG/50 ML IVPB 20 MG/50 ML MG IVPB ONE ×2 (20:19→22:27)
[2018-11-14] MEDS ORDERED: LACTULOSE 20 GM/30 ML UDC (FOR ORAL USE ONLY) ONE (20:25)
[2018-11-14 20:40] LABS: INR 1.7 (0.83-1.09); PROTHROMBIN TIME (PATIENT) 20.2 SEC (9.7-13.0)
[2018-11-14] MEDS ORDERED: BISACODYL 10 MG SUPP.RECT PR PRN (21:01)
[2018-11-14] MEDS ORDERED: MORPHINE SULFATE 2 MG/ML VIAL IVPUSH PRN (21:02)
--- NOTE | 2018-11-14 21:06 | HP ---
CHIEF COMPLAINT: Nausea, pain PCP: Dr. Wiggins Oncologist previous: Dr. Lyn Hagan HISTORY OF PRESENT ILLNESS: 83yo F with h/o Stage III pancreatic cancer who presents today due to uncontrolled pain and nausea 2/2 to her progressing cancer. Daughter and partner are at bedside who report since pt's incidental diagnosis was discovered after she was seen here for epistaxis, weight loss, and abdominal pain. Pt was noted to have portal vein thrombosis and was placed on ____. They were seen at [facility] who discharged her on a NOAC and they were seen once by Dr. Nicholson at our facilities, however the patient and family agreed on conservative management of her cancer. Pt was living at home, however she was incrementally decreasing her PO intake and having increased pain with associated nausea. Pt's family also reports pt has not have a bowel movement for 3 days to date. Pt at home has been using Fentanyl 12mcg patch q72h, Oxycodone BID, and only Miralax for her bowel regiment. Pt reports severe pain mostly in shoulders and epigastric region. Pt was supposed to see pain specialist this prior Friday, however pt became too weak to undergo their visit. Today,pt and family would like to discuss hospice and further help her pain/nausea control which is why they sought help in the ED tonight. PAST MEDICAL HISTORY: Stage III pancreatic cancer HLD HTN Portal vein? Thrombosis Pre-diabetes PAST SURGICAL HISTORY: Social History: Smoking: Denies Alcohol: Denies Drugs: Denies Family History: Noncontributory Allergies No Known Allergies Allergy (Verified 11/14/18 17:27) HOME MEDICATIONS: Home Medications Medication Instructions Recorded FENTANYL 12mcg PATCH [DURAGESIC 1 each TD Q72H 11/14/18 12mcg PATCH -] Ondansetron HCl [Zofran] 4 mg PO Q6H PRN 11/14/18 Oxycodone HCl [Oxaydo] 7.5 mg PO Q6H PRN 11/14/18 Rivaroxaban [Xarelto -] 10 mg PO DAILY 11/14/18 Sennosides/Docusate Sodium [Stool 1 each PO DAILY PRN 11/14/18 Softener-Laxative Tablet] REVIEW OF SYSTEMS CONSTITUTIONAL: Present: Weakness, weight change, loss of appetite Absent: fever, chills, diaphoresis, malaise HEENT: Absent: rhinorrhea, nasal congestion, throat pain, throat swelling, difficulty swallowing, mouth swelling, ear pain, eye pain, visual changes CARDIOVASCULAR: Absent: chest pain, syncope, palpitations, irregular heart rate, lightheadedness , peripheral edema RESPIRATORY: Absent: cough, shortness of breath, dyspnea with exertion, orthopnea, wheezing, GASTROINTESTINAL: Presnt: Abd pain, abd distension, nausea, constipation Absent: vomiting, diarrhea,melena MUSCULOSKELETAL: Present: Arthralgia Absent: myalgia, joint swelling, back pain, neck pain SKIN: Absent: rash, itching, pallor HEMATOLOGIC/IMMUNOLOGIC: Absent: easy bleeding, easy bruising, NEUROLOGIC: Absent: headache, focal weakness or paresthesias, dizziness, PSYCHIATRIC: Absent: anxiety, depression, suicidal or homicidal ideation, hallucinations. PHYSICAL EXAMINATION Vital Signs 11/14/18 17:27 Temperature 98.2 F Pulse Rate 103 H Respiratory 20 Rate Blood Pressure 123/61 O2 Sat by Pulse 97 Oximetry (%) GENERAL: Mild distress, Awake, alert, and fully oriented HEENT: Bitemporal wasting, dry mucosa, sclera anicteric NECK: No JVD LUNGS: Poor inspiratory effort due to pain. No wheezes, and no crackles. No accessory muscle use. HEART: Tachycardic and regular rhythm, normal S1 and S2 without murmur ABDOMEN: Soft, tensely distended, mild TTP diffusely, hypoactive BS, no guarding EXTREMITIES: 2+ pulses, warm, No peripheral edema. PSYCHIATRIC: Cooperative. Good eye contact. SKIN: Warm, dry, no rashes or lesions noted Laboratory Results - last 24 hr 11/14/18 11/14/18 11/14/18 19:42 19:42 19:42 WBC 6.2 RBC 3.21 L Hgb 9.2 L Hct 27.9 L MCV 86.7 MCH 28.5 MCHC 32.9 RDW 14.6 Plt Count 373 MPV 7.2 L Absolute Neuts (auto) 4.7 Neutrophils % 76.3 Lymphocytes % 13.4 Monocytes % 9.2 Eosinophils % 0.6 Basophils % 0.5 Nucleated RBC % 0 PT with INR 20.20 H INR 1.70 H Sodium 130 L Potassium 5.2 H Chloride 97 L Carbon Dioxide 22 Anion Gap 10 BUN 42 H Creatinine 1.3 Creat Clearance w eGFR 38.93 Random Glucose 116 H Calcium 8.8 Total Bilirubin 0.3 AST 22 ALT 14 Alkaline Phosphatase 76 Total Protein 5.6 L Albumin 2.5 L Total Amylase 32 Lipase 48 L ASSESSMENT/PLAN: Intractable pain Intractable nausea Stage III pancreatic cancer Constipation Dehydration Thrombosis HTN HLD Pre-diabetic --Place in observation for control of pain and nausea --Palliative care team consulted for discussions about hospice --Increased Fentanyl patch to 25mcg q72h (starts tomorrow) --Morphine 2mg q3h PRN pain 7-10 --Tylenol for pain 4-6 --? possible relistor for anti-mu receptor effect --NS@50cc/hr for hydration in setting of poor PO intake --Zofran 4mg q6h IVP PRN for nausea --Colace 100mg TID --Miralax ordered --Senna 2tab HS --Ducolax suppository PRN for constipation as well --Will do vitals q6h for monitoring pt's pain --will avoid labs per family's request and further imaging --Pt already signed DNR/DNI with ER physicians FEN: Fluids: NS@50cc/hr for hydration in setting of poor PO tolerance Electrolyte abnormalities: HyperK and HypoNa; will treat conservatively Nutrition: Palliative diet if pt wants PPX: DVT - Moderate-high risk 2/2 to hypercoaguable state GOC: Pt signed paperwork of DNR/DNI with family (daughter Emma; ? partner Jose) in witness. After further discussions with the patient and her family at bedside they would like conservative measures meaning they did not want invasive tests, further blood draws, further imaging. They were okay with treatment with pain management, nausea management, continued BP control as this could cause undue diress, IVF for hydration. They were going to discuss further about any antibiotic management for reversible causes. Family and patient in agreement of q6h vitals for now due to indication of adequate pain control and hydration. Dispo: Observation and to discuss inpatient vs. SNF hospice Case discussed with Dr. Jeri Fu, DO - IM PGY-2 Visit type - Emergency Visit Emergency Visit: Yes ED Registration Date: 11/14/18 Care time: The patient presented to the Emergency Department on the above date and was hospitalized for further evaluation of their emergent condition. - New Patient This patient is new to me today: Yes Date on this admission: 11/14/18 - Critical Care Critical Care patient: No
--- NOTE | 2018-11-14 21:16 | PN ---
Teaching Attending Note Name of Resident: Sunil Fu ATTENDING PHYSICIAN STATEMENT I saw and evaluated the patient. I reviewed the resident's note and discussed the case with the resident. I agree with the resident's findings and plan as documented. SUBJECTIVE: This is an 83 year old woman with a history of pancreatic cancer, HTN, hyperlipidemia, stage 3 CKD, portal vein thrombosis who comes to the ED complaining of abdominal pain, nausea, and vomiting. The patient had chosen not to treat the cancer. At home, she has been using fentanyl 12.5 mcg patch and oxycodone 5 mg twice a day. She has not been able to take the oxycodone because of nausea. She is on Miralax daily for constipation. Her oral intake has been gradually decreasing. She has not had a bowel movement in 3 days despite Miralax. OBJECTIVE: Vital Signs Period Temp Pulse Resp BP Sys/Carvajal Pulse Ox Last 24 Hr 98.2 F 103 20 123/61 97 HEART: S1S2, tachycardic LUNGS: Clear ABDOMEN: Soft, distended, firm, mild diffuse tenderness, hypoactive BS EXTREMITIES: 1+ pedal edema Laboratory Tests 11/14/18 11/14/18 11/14/18 19:42 19:42 19:42 WBC 6.2 RBC 3.21 L Hgb 9.2 L Hct 27.9 L MCV 86.7 MCH 28.5 MCHC 32.9 RDW 14.6 Plt Count 373 MPV 7.2 L Absolute Neuts (auto) 4.7 Neutrophils % 76.3 Lymphocytes % 13.4 Monocytes % 9.2 Eosinophils % 0.6 Basophils % 0.5 Nucleated RBC % 0 PT with INR 20.20 H INR 1.70 H Sodium 130 L Potassium 5.2 H Chloride 97 L Carbon Dioxide 22 Anion Gap 10 BUN 42 H Creatinine 1.3 Creat Clearance w eGFR 38.93 Random Glucose 116 H Calcium 8.8 Total Bilirubin 0.3 AST 22 ALT 14 Alkaline Phosphatase 76 Total Protein 5.6 L Albumin 2.5 L Total Amylase 32 Lipase 48 L Home Medications Medication Instructions Recorded FENTANYL 12mcg PATCH [DURAGESIC 1 each TD Q72H 11/14/18 12mcg PATCH -] Ondansetron HCl [Zofran] 4 mg PO Q6H PRN 11/14/18 Oxycodone HCl [Oxaydo] 7.5 mg PO Q6H PRN 11/14/18 Rivaroxaban [Xarelto -] 10 mg PO DAILY 11/14/18 Sennosides/Docusate Sodium [Stool 1 each PO DAILY PRN 11/14/18 Softener-Laxative Tablet] ASSESSMENT AND PLAN: This is an 83 year old woman with a history of stage 3 pancreatic cancer, HTN, hyperlipidemia, stage 3 CKD, portal vein thrombosis who presented to the ED with abdominal pain, nausea, vomiting, and constipation. 1. Stage 3 pancreatic cancer with ascites and opioid-induced constipation - Pain control - Increase fentanyl patch to 25 mcg - Morphine as needed for pain until able to take oral meds - Family does not want therapeutic paracentesis at this time - IV fluid - Lactulose, Miralax given in ED for constipation - Continue Colace, Senna, Miralax for constipation if able to tolerate - Consider Dulcolax suppository, Relistor for constipation - Palliative care consult - family wants to look into hospice care 2. Hyponatremia, hyperkalemia - IV fluid - Family does not want aggressive management and does not want blood draws 3. Anemia - Family does not want further investigation or treatment 4. Stage 3 CKD - Stable 5. HTN - On no medication 6. Hyperlipidemia - On no medication 7. Portal vein thrombosis
[2018-11-14] MEDS: SODIUM CHLORIDE 1,000 ML IV SCH (22:41)
[2018-11-14] MEDS ORDERED: Methylnaltrexone Bromide 12 MG/0.6 ML KIT SQ PRN (22:42)
[2018-11-14] MEDS: SENNOSIDES 8.6MG TABLET (FP) PO SCH (22:42)
[2018-11-14] MEDS: POLYETHYLENE GLYCOL 3350 119 GM BTL PO SCH (22:42)
[2018-11-15] MEDS ORDERED: ACETAMINOPHEN 325 MG TABLET (FP) ONE (07:38)
[2018-11-15] MEDS ORDERED: BISACODYL 10 MG SUPP.RECT RC ONE (07:38)
[2018-11-15] MEDS ORDERED: DOCUSATE SODIUM 100 MG CAPSULE (FP) PO ONE ×2 (07:39→14:05)
[2018-11-15] MEDS: DOCUSATE SODIUM 100 MG CAPSULE (FP) PO SCH ×3 (07:53→21:57)
[2018-11-15] MEDS: ACETAMINOPHEN 325 MG TABLET (FP) PO PRN (07:53)
[2018-11-15] MEDS: POLYETHYLENE GLYCOL 3350 119 GM BTL PO SCH ×2 (09:38→22:46)
[2018-11-15] MEDS ORDERED: FENTANYL PATCH WASTE TD PRN (10:41)
[2018-11-15] MEDS ORDERED: fentaNYL 25mcg/hr PATCH.TD72 TD SCH (10:45)
[2018-11-15] MEDS ORDERED: fentaNYL 25mcg/hr PATCH.TD72 ONE (11:16)
--- NOTE | 2018-11-15 15:41 | PN ---
Progress Note, Physician Chief Complaint: Ms Benedict complains of abdominal pain and constipation. No cp or sob. - Current Medication List Current Medications: Active Medications Acetaminophen (Tylenol -) 650 mg PO Q6H PRN PRN Reason: PAIN LEVEL 4 - 6 Last Admin: 11/15/18 07:53 Dose: 650 mg Bisacodyl (Dulcolax Suppository -) 10 mg [place] PRN PRN PRN Reason: CONSTIPATION Last Admin: 11/15/18 07:53 Dose: 10 mg Docusate Sodium (Colace -) 100 mg PO TID [facility] Last Admin: 11/15/18 14:11 Dose: 100 mg Fentanyl (Duragesic 25mcg Patch -) 1 patch TD Q72H [facility] Stop: 11/22/18 10:42 Last Admin: 11/15/18 11:17 Dose: 1 patch Sodium Chloride (Normal Saline -) 1,000 mls @ 50 mls/hr IV ASDIR [facility] Last Admin: 11/14/18 22:41 Dose: 50 mls/hr Methylnaltrexone [place] (Relistor -) 8 mg SQ Q2D@1000 PRN PRN Reason: CONSTIPATION Miscellaneous (Duragesic Patch Waste) 1 each TD PRN PRN PRN Reason: PAIN Morphine Sulfate (Morphine Sulfate) 2 mg IVPUSH Q3H PRN PRN Reason: PAIN LEVEL 7 - 10 Ondansetron HCl (Zofran Injection) 4 mg IVPUSH Q6H PRN PRN Reason: NAUSEA AND/OR VOMITING Polyethylene Glycol (Miralax (For Daily Use) -) 17 gm PO BID [facility] Last Admin: 11/15/18 09:38 Dose: 17 gm Senna (Senna -) 2 tab PO HS [facility] Last Admin: 11/14/18 22:42 Dose: 2 tab - Objective Vital Signs: Vital Signs Temperature 36.5 C 11/15/18 07:30 Pulse Rate 107 H 11/15/18 07:30 Respiratory Rate 17 11/15/18 10:41 Blood Pressure 133/58 L 11/15/18 07:30 O2 Sat by Pulse Oximetry (%) 97 11/15/18 10:41 Constitutional: Yes: Well Nourished, Moderate Distress Cardiovascular: Yes: Regular Rate and Rhythm. No: Gallop, Murmur, Rub Respiratory: Yes: Regular, CTA Bilaterally. No: Rales, Rhonchi, Wheezes Gastrointestinal: Yes: Distention, Hypoactive Bowel Sounds, Tenderness. No: Normal Bowel Sounds, Soft Extremities: Yes: WNL Edema: No Labs: CBC, BMP 11/14/18 19:42 11/14/18 19:42 INR, PTT INR 1.70 (0.83-1.09) H 11/14/18 19:42 Problem List - Problems (1) Abdominal pain Code(s): R10.9 - UNSPECIFIED ABDOMINAL PAIN Qualifiers: Abdominal location: generalized Qualified Code(s): R10.84 - Generalized abdominal pain (2) Constipation Code(s): K59.00 - CONSTIPATION, UNSPECIFIED Qualifiers: Constipation type: unspecified constipation type Qualified Code(s): K59.00 - Constipation, unspecified (3) Pancreatic cancer Code(s): C25.9 - MALIGNANT NEOPLASM OF PANCREAS, UNSPECIFIED Qualifiers: Pancreatic malignancy location: unspecified Qualified Code(s): C25.9 - Malignant neoplasm of pancreas, unspecified Assessment/Plan -case d/w patient and daughter -given suppository -bowel movement after suppository and feeling more comfortable -fentanyl patch increased to 25mcg -morphine prn for pain -palliative care consult
--- NOTE | 2018-11-15 18:06 | EKG ---
Test Reason : Blood Pressure : / mmHG Vent. Rate : 105 BPM Atrial Rate : 105 BPM P-R Int : 142 ms QRS Dur : 080 ms QT Int : 334 ms P-R-T Axes : 012 -01 022 degrees QTc Int : 441 ms SINUS TACHYCARDIA CANNOT RULE OUT ANTERIOR INFARCT (CITED ON OR BEFORE 14-NOV-2018) ABNORMAL ECG WHEN COMPARED WITH ECG OF 06-NOV-2018 21:33, NO SIGNIFICANT CHANGE WAS FOUND Confirmed by ALVARO VALDEZ, KIRA ([id number]) on 11/15/2018 6:05:19 PM Referred By: Confirmed By:KIRA JOHN MD
[2018-11-15 18:17] VITALS: BMI 26.4
[2018-11-15] MEDS: SODIUM CHLORIDE 1,000 ML IV SCH (20:55)
[2018-11-15] MEDS: SENNOSIDES 8.6MG TABLET (FP) PO SCH (21:56)
[2018-11-16] MEDS: ACETAMINOPHEN 325 MG TABLET (FP) PO PRN (02:14)
[2018-11-16] MEDS: DOCUSATE SODIUM 100 MG CAPSULE (FP) PO SCH ×3 (06:21→21:09)
[2018-11-16] MEDS: POLYETHYLENE GLYCOL 3350 119 GM BTL PO SCH ×2 (10:07→21:09)
[2018-11-16] MEDS: ONDANSETRON 4 MG/2 ML VIAL IVPUSH PRN (13:21)
[2018-11-16] MEDS ORDERED: PT OWN MED DRAWER 7, Y5N ONE (13:28)
[2018-11-16] MEDS: SODIUM CHLORIDE 1,000 ML IV SCH (14:00)
--- NOTE | 2018-11-16 15:56 | PN ---
Progress Note, Physician Chief Complaint: Ms Benedict says she feels better but unable to obtain further subjective, confused. - Current Medication List Current Medications: Active Medications Acetaminophen (Tylenol -) 650 mg PO Q6H PRN PRN Reason: PAIN LEVEL 4 - 6 Last Admin: 11/16/18 02:14 Dose: 650 mg Bisacodyl (Dulcolax Suppository -) 10 mg [place] PRN PRN PRN Reason: CONSTIPATION Last Admin: 11/15/18 07:53 Dose: 10 mg Docusate Sodium (Colace -) 100 mg PO TID [facility] Last Admin: 11/16/18 13:21 Dose: 100 mg Fentanyl (Duragesic 25mcg Patch -) 1 patch TD Q72H [facility] Stop: 11/22/18 10:42 Last Admin: 11/15/18 11:17 Dose: 1 patch Sodium Chloride (Normal Saline -) 1,000 mls @ 50 mls/hr IV ASDIR [facility] Last Admin: 11/15/18 20:55 Dose: 50 mls/hr Methylnaltrexone [place] (Relistor -) 8 mg SQ Q2D@1000 PRN PRN Reason: CONSTIPATION Last Admin: 11/16/18 15:16 Dose: 8 mg Miscellaneous (Duragesic Patch Waste) 1 each TD PRN PRN PRN Reason: PAIN Morphine Sulfate (Morphine Sulfate) 2 mg IVPUSH Q3H PRN PRN Reason: PAIN LEVEL 7 - 10 Ondansetron HCl (Zofran Injection) 4 mg IVPUSH Q6H PRN PRN Reason: NAUSEA AND/OR VOMITING Last Admin: 11/16/18 13:21 Dose: 4 mg Polyethylene Glycol (Miralax (For Daily Use) -) 17 gm PO BID [facility] Last Admin: 11/16/18 10:07 Dose: 17 gm Senna (Senna -) 2 tab PO HS [facility] Last Admin: 11/15/18 21:56 Dose: 2 tab - Objective Vital Signs: Vital Signs Temperature 36.4 C L 11/16/18 10:16 Pulse Rate 96 H 11/16/18 10:16 Respiratory Rate 20 11/16/18 10:16 Blood Pressure 111/53 L 11/16/18 10:16 O2 Sat by Pulse Oximetry (%) 98 11/16/18 12:00 Constitutional: Yes: Well Nourished, No Distress, Calm Cardiovascular: Yes: Regular Rate and Rhythm. No: Gallop, Murmur, Rub Respiratory: Yes: Regular, CTA Bilaterally. No: Rales, Rhonchi, Wheezes Gastrointestinal: Yes: Normal Bowel Sounds, Distention, Tenderness Extremities: Yes: WNL Edema: No Labs: CBC, BMP 11/14/18 19:42 11/14/18 19:42 INR, PTT INR 1.70 (0.83-1.09) H 11/14/18 19:42 Problem List - Problems (1) Abdominal pain Code(s): R10.9 - UNSPECIFIED ABDOMINAL PAIN Qualifiers: Abdominal location: generalized Qualified Code(s): R10.84 - Generalized abdominal pain (2) Constipation Code(s): K59.00 - CONSTIPATION, UNSPECIFIED Qualifiers: Constipation type: unspecified constipation type Qualified Code(s): K59.00 - Constipation, unspecified (3) Pancreatic cancer Code(s): C25.9 - MALIGNANT NEOPLASM OF PANCREAS, UNSPECIFIED Qualifiers: Pancreatic malignancy location: unspecified Qualified Code(s): C25.9 - Malignant neoplasm of pancreas, unspecified Assessment/Plan -patient had bowel movement after suppository -continue bowel regimen -with bilious emesis, control with anti-emetic -pain better controlled today, continue current regimen -case d/w daughter -SW and palliative care to see and discuss hospice options -will continue gentle hydration at this time
[2018-11-16] MEDS: SENNOSIDES 8.6MG TABLET (FP) PO SCH (21:09)
[2018-11-17] MEDS: ONDANSETRON 4 MG/2 ML VIAL IVPUSH PRN ×2 (01:39→11:52)
[2018-11-17] MEDS: DOCUSATE SODIUM 100 MG CAPSULE (FP) PO SCH (05:49)
[2018-11-17] MEDS: POLYETHYLENE GLYCOL 3350 119 GM BTL PO SCH (10:14)
[2018-11-17] MEDS ORDERED: MORPHINE SULFATE 2 MG/ML VIAL IVPUSH PRN ×2 (10:38→10:43)
[2018-11-17] MEDS ORDERED: morphine CARPU-JECT 2 MG/1 ML DISP.SYRIN IVPUSH PRN (10:38)
[2018-11-17] MEDS ORDERED: LORazepam 2 MG/ML SDV VIAL IVPUSH PRN (10:47)
--- NOTE | 2018-11-17 10:54 | PN ---
Progress Note, Physician - Current Medication List Current Medications: Active Medications Acetaminophen (Tylenol -) 650 mg PO Q6H PRN PRN Reason: PAIN LEVEL 4 - 6 Last Admin: 11/16/18 02:14 Dose: 650 mg Bisacodyl (Dulcolax Suppository -) 10 mg IN PRN PRN PRN Reason: CONSTIPATION Last Admin: 11/15/18 07:53 Dose: 10 mg Docusate Sodium (Colace -) 100 mg PO TID [facility] Last Admin: 11/17/18 05:49 Dose: Not Given Fentanyl (Duragesic 25mcg Patch -) 1 patch TD Q72H [facility] Stop: 11/22/18 10:42 Last Admin: 11/15/18 11:17 Dose: 1 patch Sodium Chloride (Normal Saline -) 1,000 mls @ 50 mls/hr IV ASDIR [facility] Last Admin: 11/16/18 14:00 Dose: 50 mls/hr Lorazepam (Ativan Injection -) 1 mg IVPUSH Q4H PRN PRN Reason: ANXIETY Methylnaltrexone [place] (Relistor -) 8 mg SQ Q2D@1000 PRN PRN Reason: CONSTIPATION Last Admin: 11/16/18 15:16 Dose: 8 mg Miscellaneous (Duragesic Patch Waste) 1 each TD PRN PRN PRN Reason: PAIN Morphine Sulfate (Morphine Sulfate) 2 mg IVPUSH Q2H PRN PRN Reason: PAIN LEVEL 6-10 Morphine Sulfate (Morphine Sulfate) 1 mg IVPUSH Q2H PRN PRN Reason: PAIN LEVEL 1-5 Ondansetron HCl (Zofran Injection) 4 mg IVPUSH Q6H PRN PRN Reason: NAUSEA AND/OR VOMITING Last Admin: 11/17/18 01:39 Dose: 4 mg Polyethylene Glycol (Miralax (For Daily Use) -) 17 gm PO BID [facility] Last Admin: 11/17/18 10:14 Dose: 17 gm Senna (Senna -) 2 tab PO HS [facility] Last Admin: 11/16/18 21:09 Dose: 2 tab - Objective Vital Signs: Vital Signs Temperature 36.7 C 11/17/18 06:44 Pulse Rate 93 H 11/17/18 06:44 Respiratory Rate 20 11/17/18 06:44 Blood Pressure 114/50 L 11/17/18 06:44 O2 Sat by Pulse Oximetry (%) 98 04/09/19 04:00 Labs: CBC, BMP 11/14/18 19:42 11/14/18 19:42 INR, PTT INR 1.70 (0.83-1.09) H 11/14/18 19:42 Problem List - Problems (1) Abdominal pain Code(s): R10.9 - UNSPECIFIED ABDOMINAL PAIN Qualifiers: Abdominal location: generalized Qualified Code(s): R10.84 - Generalized abdominal pain (2) Constipation Code(s): K59.00 - CONSTIPATION, UNSPECIFIED Qualifiers: Constipation type: unspecified constipation type Qualified Code(s): K59.00 - Constipation, unspecified (3) Pancreatic cancer Code(s): C25.9 - MALIGNANT NEOPLASM OF PANCREAS, UNSPECIFIED Qualifiers: Pancreatic malignancy location: unspecified Qualified Code(s): C25.9 - Malignant neoplasm of pancreas, unspecified
[2018-11-17 11:41] VITALS: BP 88/44; PULSE 108; TEMP 98.3
--- NOTE | 2018-11-17 14:13 | DS ---
Physical Examination Vital Signs: Vital Signs Temperature 36.8 C 11/17/18 11:40 Pulse Rate 108 H 11/17/18 11:40 Respiratory Rate 20 11/17/18 11:40 Blood Pressure 88/44 L 11/17/18 11:40 O2 Sat by Pulse Oximetry (%) 98 11/17/18 11:38 Labs: CBC, BMP 11/14/18 19:42 11/14/18 19:42 Discharge Summary Reason For Visit: WEAKNESS, ABDOMINAL PAIN, NAUSEA VOMITING Current Active Problems Abdominal pain (Acute) Constipation (Acute) Nausea & vomiting (Acute) Pancreatic cancer (Acute) Weakness (Acute) Condition: Stable - Instructions Diet, Activity, Other Instructions: diet and activity per [place] Disposition: TRANSFER ACUTE CARE/OTHER HOSP - Home Medications Comprehensive Discharge Medication List: Ambulatory Orders Acetaminophen [Tylenol .Regular Strength -] 650 mg PO Q6H PRN tablet 11/17/18 Bisacodyl Suppository [Dulcolax Suppository -] 10 mg [place] PRN PRN supp.rect 11/17 Docusate Sodium [Colace -] 100 mg PO TID capsule 11/17/18 FENTANYL 25mcg PATCH [DURAGESIC 25mcg PATCH -] 1 patch TD Q72H patch.td72 MDD 1 patch 11/17/18 Fentanyl Patch Waste [Duragesic Patch Waste] 1 each TD PRN PRN each 11/17/18 Methylnaltrexone [place] [Relistor -] 8 mg SQ Q2D@1000 PRN kit 11/17/18 Polyethylene Glycol 3350 [Miralax 119 gm Btl -] 17 gm PO BID bottle 11/17/18 Sennosides [Senna -] 2 tab PO HS tablet 11/17/18
== END 2018-11-17 17:01 | disposition short-term general hospital (02) | DRG 435 ==
LOC: JER 17:17 → JERBED 20:28 → J8W 11-15 17:49 → OBSVTOIN 11-17 10:29
PROVIDERS: ADMIT Internal Medicine; ATTEND Internal Medicine
DX: C25.9 Malignant neoplasm of pancreas, unspecified (principal); I81 Portal vein thrombosis; R64 Cachexia; E87.1 Hypo-osmolality and hyponatremia; K59.00 Constipation, unspecified; E78.5 Hyperlipidemia, unspecified; E11.9 Type 2 diabetes mellitus without complications; R11.2 Nausea with vomiting, unspecified; Z68.26 Body mass index [BMI] 26.0-26.9, adult; E86.0 Dehydration; E87.5 Hyperkalemia; I12.9 Hypertensive chronic kidney disease with stage 1 through stage 4 chronic kidney disease, or unspecified chronic kidney disease; N18.9 Chronic kidney disease, unspecified; D64.9 Anemia, unspecified; Z66 Do not resuscitate
CPT/HCPCS: 36415; 74019-TC-FY; 80053; 82150; 82962; 83690; 85025; 85610; 86850; 86900; 86901; 93005; 93010; 99285-25; G0378; J0131; J7030; Q0162